=== PATIENT | female | born 1935 | race Caucasian/White ===

== ENCOUNTER 2018-04-06 17:32 | Inpatient (IN) | payer MEDICARE, MEDICAID ==
[~2018-04-06] VITALS: Ht 170.2 cm; Wt 72.0 kg
--- NOTE | 2018-04-06 18:02 | NUR ---
PT BIB CARE FLIGHT FROM [facility]. PT WENT IN TO [facility] AROUND 0830 THIS MORNING WTIH C/O HEADACHE & GENERAL WEAKNESS, LOSS OF BALANCE. CT & MRI WERE NEGATIVE FOR CVA. AROUND 1500 PT STARTED C/O DIFFICULTY SWALLOWING AND L EYE DROOP. 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 PT TRANSPORTED TO [facility] FOR FURTHER NEURO EVAL. ARRIVES TO ED A&OX4, CALM, PLEASANT. VSS. ON RA. SOME BELCHING AND DRY HEAVING NOTED, PT STATES THIS IS CHRONIC.
[2018-04-06] MEDS ORDERED: DOCU250C9 PO (18:43)
[2018-04-06] MEDS ORDERED: MEMA10TA PO (18:43)
[2018-04-06] MEDS ORDERED: ALEN70TA6 PO (18:43)
[2018-04-06] MEDS ORDERED: ERGO500017 PO (18:43)
[2018-04-06] MEDS ORDERED: MIRA25TA PO (18:43)
[2018-04-06] MEDS ORDERED: FURO20TA3 PO (18:43)
[2018-04-06] MEDS ORDERED: DICL100G19 TP (18:43)
[2018-04-06] MEDS ORDERED: PARO20TA98 PO (18:43)
--- NOTE | 2018-04-06 18:47 | NUR ---
REPORT FROM MYLENE ALLEN TO ASSUME PT. CARE. DR. TEJEDA AT TO EVAL PT. AND DISCUSS POC.
--- NOTE | 2018-04-06 18:55 | NUR ---
REPORTED TO ISELA CHAKRABORTY.
[2018-04-06] MEDS ORDERED: SODIUM CHLORIDE FLUSH 10ML SYR IVF ONE (19:00)
[2018-04-06 19:13] LABS: BASOPHILS # (AUTO) 0.02 x10^3/uL (0-0.1); BASOPHILS % (AUTO) 0 % (0-1); EOSINOPHILS # (AUTO) 0.05 x10^3/uL (0-0.4); EOSINOPHILS % (AUTO) 1 % (1-7); LYMPHOCYTES # (AUTO) 1.25 x10^3/uL (1-3.4); LYMPHOCYTES % (AUTO) 23 % (22-44); MD NO; MEAN CORPUSCULAR HEMOGLOBIN 28.2 pg (27.0-34.8); MEAN CORPUSCULAR HGB CONC 33.2 g/dL (32.4-35.8); MONOCYTES % (AUTO) 11 % (2-9); NEUTROPHILS # (AUTO) 3.49 x10^3/uL (1.8-6.8); NEUTROPHILS % (AUTO) 65 % (42-75); PLATELET COUNT 199 x10^3/uL (130-400); RED BLOOD COUNT 4.45 x10^6/uL (3.82-5.3); RED CELL DISTRIBUTION WIDTH 15.1 % (9.6-15.2)
--- NOTE | 2018-04-06 19:13 | NUR ---
PT. HAS AN EPISODE OF URINE INCONTINENCE; PT. CLEANSED AND GOWN/LINEN CHANGED. PT. ABLE TO PHELPS X 4; GENERALIZED WEAKNESS BUT PT. WAS ABLE TO ADJUST SELF IN BED AND MOVE SELF UP IN BED WITHOUT DIFFICULTY. PT. IS ORIENTED TO "END OF MARCH", BUT UNABEL TO STATE YEAR. OTHERWISE ORIENTED. NO SLURRED SPEECH OR FACIAL DROOP NOTED. PT. IS ON ALL MONITORS AND CALL LIGHT IN REACH. PT. DENIES NEEDS. ALL SAFETY MEASURES OBSERVED.
--- NOTE | 2018-04-06 19:16 | NUR ---
DURING CLEANSING SMALL QUARTER SIZED RED AREA NOTED OVER COCCYX; NON-BLANCHING.
[2018-04-06 19:17] LABS: INTERNATIONAL NORMALIZED RATIO 1.06 (0.93-1.1); PROTHROMBIN TIME 11.2 Seconds (9.6-11.5)
[2018-04-06 19:18] LABS: ALANINE AMINOTRANSFERASE 15 U/L (12-78); ALBUMIN 3.1 g/dL (3.4-5.0); ANION GAP 7 mmol/L (5-15); CALCIUM 8.4 mg/dL (8.5-10.1); CHLORIDE 105 mmol/L (98-107); CREATININE 0.71 mg/dL (0.55-1.02)
--- NOTE | 2018-04-06 19:20 | NUR ---
[facility] phone number
[2018-04-06 19:21] LABS: ALKALINE PHOSPHATASE 93 U/L (45-117); BILIRUBIN,TOTAL 0.5 mg/dL (0.2-1.0); TOTAL PROTEIN 6.1 g/dL (6.4-8.2)
[2018-04-06] MEDS ORDERED: POTASSIUM CHLORIDE 20 MEQ TAB.ER.PRT PO ONE (20:30)
[2018-04-06] MEDS ORDERED: BISACODYL 10 MG SUPP PR PRN (20:30)
[2018-04-06] MEDS ORDERED: ONDANSETRON 4 MG TABLET PO PRN (20:30)
[2018-04-06] MEDS ORDERED: POLYETHYLENE GLYCOL 17 GM PACKET PO PRN (20:30)
--- NOTE | 2018-04-06 20:50 | NUR ---
PT. HAS ANOTHER INCONTINENT EPISODE. PT. GOWN/LINEN/BLANKETS CHANGED AND PT. CLEANSED. NO CHANGE IN CONDITION. DIAPER PLACED ON PT. PER HER REQUEST. PT. HAS CONTINUOUS INCONTINENCE PRIOR TO THIS HOSPITAL VISIST AND USES DEPENDS AT HOME. PT. DENIES NEEDS. MONITORS REMAIN IN PLACE. CALL LIGHT IN REACH.
[2018-04-06] MEDS ORDERED: ATORVASTATIN 40 MG TABLET PO SCH (21:00)
--- NOTE | 2018-04-06 21:11 | NUR ---
REPORT TO MYLENE VALENCIA. FLOOR READY FOR PT. TRANSPORT.
[2018-04-06] MEDS ORDERED: POTASSIUM CHLORIDE 20 MEQ TAB.ER.PRT ONE (21:36)
--- NOTE | 2018-04-06 21:44 | NUR ---
MEDICATED PT. PER MAY. PT. ABLE TO SWALLOW WATER WITHOUT DIFFICUTLY OR COUGHING AFTER. PT. DID HOWEVER START COUGHING AFTER THE FIRST POTASSIUM PILL AND REPORTED IT FELT STUCK. PT. DID DRINK MORE WATER AND AFTER ABOUT 30 SECONDS REPORTED IT DIDN'T FEEL STUCK ANYMORE. UNABLE TO TAKE 2ND ONE AT THIS TIME. WILL UPDATE TATIANA GUZMAN OF THIS. MYLENE VALENCIA UPDATED ON THIS. PT. GOING UP NOW.
--- NOTE | 2018-04-06 21:48 | NUR ---
PT. UNABLE TO REMEMBER WHAT DAY OF THE WEEK SHE TAKES HER ALDENDRONATE SODIUM.
[2018-04-06 22:00] VITALS: BP 151/53
[2018-04-06] MEDS: TEMPLATE NON-FORMULARY MED. (Diclofenac Sodium (Voltaren) 1 APPLIC) TP SCH (22:00)
[2018-04-06] MEDS: MEMANTINE 10MG TABLET PO SCH (22:00)
[2018-04-07] VITALS (8 sets, daily range): BP systolic 112–160; BP diastolic 56–86
[2018-04-07 05:59] LABS: ALBUMIN 3.2 g/dL (3.4-5.0); ALKALINE PHOSPHATASE 96 U/L (45-117); BILIRUBIN,TOTAL 0.5 mg/dL (0.2-1.0); CALCIUM 8.4 mg/dL (8.5-10.1); CHOLESTEROL, TOTAL 223 mg/dL (140-239); HDL CHOL % 34 % (28-40); HDL CHOLESTEROL (DIRECT) 75 mg/dL (40-60); LDL CHOLESTEROL,CALCULATED 137 mg/dL (54-169); LDL/HDL RATIO 1.8 (0.5-3.0); TOTAL PROTEIN 6.4 g/dL (6.4-8.2); TRIGLYCERIDES 53 mg/dL (50-200); VLDL CHOLESTEROL 11 mg/dL (0-25)
[2018-04-07] MEDS: TEMPLATE NON-FORMULARY MED. (Diclofenac Sodium (Voltaren) 1 APPLIC) TP SCH ×4 (06:00→20:01)
[2018-04-07 06:15] LABS: BASOPHILS # (AUTO) 0.02 x10^3/uL (0-0.1); BASOPHILS % (AUTO) 0 % (0-1); EOSINOPHILS # (AUTO) 0.05 x10^3/uL (0-0.4); EOSINOPHILS % (AUTO) 1 % (1-7); LYMPHOCYTES # (AUTO) 1.27 x10^3/uL (1-3.4); LYMPHOCYTES % (AUTO) 15 % (22-44); MD NO; MEAN CORPUSCULAR HEMOGLOBIN 28.7 pg (27.0-34.8); MEAN CORPUSCULAR HGB CONC 33.7 g/dL (32.4-35.8); MEAN CORPUSCULAR VOLUME 85.2 fL (80-100); MEAN PLATELET VOLUME 10.5 fL (7.4-10.4); MONOCYTES % (AUTO) 8 % (2-9); NEUTROPHILS # (AUTO) 6.76 x10^3/uL (1.8-6.8); NEUTROPHILS % (AUTO) 77 % (42-75); PLATELET COUNT 198 x10^3/uL (130-400); RED BLOOD COUNT 4.65 x10^6/uL (3.82-5.3)
[2018-04-07 06:23] LABS: ALANINE AMINOTRANSFERASE 14 U/L (12-78); ANION GAP 7 mmol/L (5-15); CHLORIDE 107 mmol/L (98-107); CREATININE 0.71 mg/dL (0.55-1.02)
[2018-04-07] MEDS ORDERED: DOCUSATE CALCIUM 240 MG CAPSULE PO SCH (09:00)
[2018-04-07] MEDS: PAROXETINE 20 MG TABLET PO SCH (09:11)
[2018-04-07] MEDS: MEMANTINE 10MG TABLET PO SCH ×2 (09:12→19:57)
[2018-04-07] MEDS: ASPIRIN 81 MG TABLET CHEW PO/NG SCH (09:13)
[2018-04-07] MEDS: FUROSEMIDE 20 MG TABLET PO SCH (09:15)
[2018-04-07] MEDS: TEMPLATE NON-FORMULARY MED. (Mirabegron** (Myrbetriq**) 25 MG) PO SCH (09:15)
[2018-04-07] MEDS: DOCUSATE CALCIUM 240 MG CAPSULE PO SCH (09:23)
[2018-04-07] MEDS ORDERED: POTASSIUM CHLORIDE 20 MEQ TAB.ER.PRT PO ONE (10:30)
[2018-04-07] MEDS ORDERED: POTASSIUM CHLORIDE 20 MEQ PACKET PO ONE (11:00)
--- NOTE | 2018-04-07 16:05 | NUR ---
Recommend thin/puree diet with adherence to the following strategies: UPRIGHT AT 90 DEGREES FOR ALL PO INTAKE REMAIN UPRIGHT 30 MINUTES AFTER PO INTATE MEDS CRUSHED NO STRAWS [place] sheet posted Addendum: 04/07/18 at [address] Amended: Links added.
[2018-04-07] MEDS: ATORVASTATIN 80 MG TABLET PO SCH (19:57)
[2018-04-08 01:53] VITALS: BP 161/83
[2018-04-08] MEDS: TEMPLATE NON-FORMULARY MED. (Diclofenac Sodium (Voltaren) 1 APPLIC) TP SCH ×4 (05:21→20:14)
[2018-04-08] MEDS ORDERED: ALENDRONATE 70 MG TABLET PO SCH (06:30)
[2018-04-08 07:14] VITALS: BP 155/80
[2018-04-08] MEDS: TEMPLATE NON-FORMULARY MED. (Mirabegron** (Myrbetriq**) 25 MG) PO SCH (08:15)
[2018-04-08] MEDS: FUROSEMIDE 20 MG TABLET PO SCH (08:16)
[2018-04-08] MEDS: MEMANTINE 10MG TABLET PO SCH ×2 (08:19→20:14)
[2018-04-08] MEDS: PAROXETINE 20 MG TABLET PO SCH (08:19)
[2018-04-08] MEDS: ASPIRIN 81 MG TABLET CHEW PO/NG SCH (08:20)
[2018-04-08] MEDS ORDERED: DOCUSATE 100 MG CAPSULE ONE (08:21)
[2018-04-08] MEDS: DOCUSATE CALCIUM 240 MG CAPSULE PO SCH (08:22)
[2018-04-08] MEDS ORDERED: POTASSIUM CHLORIDE 40 MEQ in SODIUM CHLORIDE 0.9% 500 ML IV ONE (08:30)
[2018-04-08] MEDS ORDERED: ERGOCALCIFEROL 50,000 UNIT CAPSULE PO SCH (09:00)
[2018-04-08] MEDS ORDERED: OMNIPAQUE 350 MG/ML, 100ML BOTTLE ONE (10:41)
[2018-04-08 12:45] VITALS: BP 150/79
[2018-04-08] MEDS ORDERED: LACTULOSE 10 GM/15 ML UDC PO ONE (17:00)
[2018-04-08] MEDS: ATORVASTATIN 80 MG TABLET PO SCH (20:14)
[2018-04-08 21:10] VITALS: BP 139/73
[2018-04-09 01:41] VITALS: BP 135/80
[2018-04-09 04:31] LABS: MICROSCOPIC INDICATED
[2018-04-09 04:37] LABS: CULTURE INDICATED? YES
[2018-04-09] MEDS ORDERED: CEFTRIAXONE PMX 1GM/50ML 50 ML IV SCH (05:00)
[2018-04-09] MEDS: TEMPLATE NON-FORMULARY MED. (Diclofenac Sodium (Voltaren) 1 APPLIC) TP SCH ×4 (05:28→20:01)
[2018-04-09 05:39] LABS: ANION GAP 5 mmol/L (5-15); CALCIUM 9.2 mg/dL (8.5-10.1); CHLORIDE 109 mmol/L (98-107); CREATININE 0.66 mg/dL (0.55-1.02)
[2018-04-09 07:23] VITALS: BP 130/78
[2018-04-09] MEDS ORDERED: CEFD300C37 PO ×2 (07:33)
[2018-04-09] MEDS ORDERED: CLOP75TA PO (07:33)
[2018-04-09] MEDS ORDERED: ATOR-2 PO (07:33)
[2018-04-09] MEDS ORDERED: ASPI-515 PO/NG (07:33)
[2018-04-09] MEDS ORDERED: CLOPIDOGREL 75 MG TABLET PO SCH (09:00)
[2018-04-09] MEDS: ASPIRIN 81 MG TABLET CHEW PO/NG SCH (09:00)
[2018-04-09] MEDS: TEMPLATE NON-FORMULARY MED. (Mirabegron** (Myrbetriq**) 25 MG) PO SCH (10:04)
[2018-04-09] MEDS: PAROXETINE 20 MG TABLET PO SCH (10:21)
[2018-04-09] MEDS: MEMANTINE 10MG TABLET PO SCH ×2 (10:22→20:01)
[2018-04-09] MEDS: DOCUSATE CALCIUM 240 MG CAPSULE PO SCH (10:25)
[2018-04-09] MEDS: FUROSEMIDE 20 MG TABLET PO SCH (10:26)
[2018-04-09] MEDS: ASPIRIN 325 MG TABLET PO SCH (12:07)
[2018-04-09 13:33] VITALS: BP 145/90
[2018-04-09 19:14] VITALS: BP 107/64
[2018-04-09] MEDS: ATORVASTATIN 80 MG TABLET PO SCH (20:01)
[2018-04-09] MEDS ORDERED: CEFDINIR 300 MG CAPSULE PO SCH (21:00)
[2018-04-10 01:33] VITALS: BP 127/82
[2018-04-10] MEDS: ASPIRIN 325 MG TABLET PO SCH (05:32)
[2018-04-10 08:16] VITALS: BP 145/84
[2018-04-10] MEDS: MEMANTINE 10MG TABLET PO SCH (08:59)
[2018-04-10] MEDS: FUROSEMIDE 20 MG TABLET PO SCH (08:59)
[2018-04-10] MEDS: PAROXETINE 20 MG TABLET PO SCH (08:59)
[2018-04-10] MEDS: DOCUSATE CALCIUM 240 MG CAPSULE PO SCH (09:00)
[2018-04-10] MEDS ORDERED: ENOXAPARIN 40 MG/0.4 ML SQ SCH (10:00)
[2018-04-10 10:32] LABS: FREE T4 (FREE THYROXINE) 1.11 ng/dL (0.76-1.46); THYROID STIMULATING HORMONE 0.704 mIU/L (0.358-3.740)
[2018-04-10] MEDS: DICLOFENAC SODIUM HOMETD SCH ×2 (11:00→16:00)
[2018-04-10] MEDS ORDERED: ALENDRONATE 70 MG TABLET PO SCH (12:30)
[2018-04-10 14:16] VITALS: BP 119/79
== END 2018-04-10 16:58 | DRG 64 ==
LOC: ED 20:48 → 5SO 20:50
PROVIDERS: ADMIT Internal Medicine; ATTEND Internal Medicine
DX: I63.9 Cerebral infarction, unspecified (principal); I77.74 Dissection of vertebral artery; E44.1 Mild protein-calorie malnutrition; I73.9 Peripheral vascular disease, unspecified; E04.2 Nontoxic multinodular goiter; E87.5 Hyperkalemia; E87.6 Hypokalemia; F03.90 Unspecified dementia, unspecified severity, without behavioral disturbance, psychotic disturbance, mood disturbance, and anxiety; F32.9 Major depressive disorder, single episode, unspecified; F41.9 Anxiety disorder, unspecified; I10 Essential (primary) hypertension; J32.9 Chronic sinusitis, unspecified; K21.9 Gastro-esophageal reflux disease without esophagitis; K22.70 Barrett's esophagus without dysplasia; M81.0 Age-related osteoporosis without current pathological fracture; R13.12 Dysphagia, oropharyngeal phase; R32 Unspecified urinary incontinence; Z63.8 Other specified problems related to primary support group; Z82.49 Family history of ischemic heart disease and other diseases of the circulatory system; Z85.3 Personal history of malignant neoplasm of breast; Z87.891 Personal history of nicotine dependence; Z90.11 Acquired absence of right breast and nipple; Z96.651 Presence of right artificial knee joint; E55.9 Vitamin D deficiency, unspecified; M19.90 Unspecified osteoarthritis, unspecified site; Z68.24 Body mass index [BMI] 24.0-24.9, adult
CPT/HCPCS: 36415; 70496; 70498; 70551; 74220; 74230; 80048; 80053; 80061; 81001; 83735; 84439; 84443; 85025; 85610; 85730; 87077; 87086; 87186; 93005; 93306; G0378; J0696; J1650; J3480; Q9967; J7040